=== PATIENT | female | born 1965 | race Caucasian/White ===

== ENCOUNTER → 2017-11-21 | Outpatient (CLI) | payer OTHER ==
[~2017-11-21] MED LIST: ALEVE220 MG PO; FLECAINIDE ACE150 MG PO; LISINOPRIL10 MG PO; NORCO 5-325 TA1 EACH PO; ORTHO TRI-CYCL1 EACH PO; PREVACID15 MG PO; SKELAXIN 800 M800 M1 PO; SYNTHROID125 MC1 PO; TRAMADOL 50 MG50 MG PO; XARELTO15 MG PO
--- NOTE | ~2017-11-21 | P ---
[facility] [place] [address] PROCEDURE REPORT Name: ÁNGEL TRENT Room #: [facility]#: [id number] Admission: 11/21/17 Attend Phys: Mason Mace MD Discharge: Date of : 69 Report #: [id number] THIS REPORT FOR: //name// CC: Sujit Mace BRIEF HISTORY: The patient is a 52-year-old woman, for her initial average risk screening colonoscopy. PREOPERATIVE DIAGNOSIS: Average risk screening colonoscopy. POSTOPERATIVE DIAGNOSES: 1. Normal average risk screening colonoscopy. 2. Moderately severe diverticulosis coli, primarily sigmoid colon. MEDICATIONS: Deep sedation with propofol per Anesthesia. SPECIMEN: None. ESTIMATED BLOOD LOSS: None. PROCEDURE: Colonoscopy to cecum and terminal ileum. FINDINGS: Prior to propofol sedation, procedure of colonoscopy discussed with the patient as well as potential risks and its complications. She indicates she understands and desires to proceed. DESCRIPTION OF PROCEDURE: With the patient in left lateral decubitus position, digital examination was completed which revealed no abnormalities. Subsequently, the Olympus video colonoscope was introduced in the rectum, advanced under direct vision to the cecum. Done with minimal difficulty. The cecum was identified by the ileocecal valve and the appendiceal orifice. I was able to visualize the distal segment of the terminal ileum which was inspected and noted to be unremarkable. At that point, the scope was slowly withdrawn and careful circumferential views obtained including retroflexing the scope in the ascending colon. Upon slow withdrawal of the scope, the prep was good. The mucosa was within normal limits, normal vascular pattern, normal light reflex. No mucosal abnormalities were seen. As we withdrew the scope, an occasional diverticulum was seen in the proximal colon. However, she had moderately severe diverticular disease of the sigmoid colon without endoscopic evidence of diverticulitis. The scope was withdrawn in the rectum and no additional abnormalities were seen. Upon retroflexion in the rectum, no abnormalities were seen. Scope was withdrawn. The patient tolerated the procedure well. CONDITION OF THE PATIENT UPON DISCHARGE: Following the procedure, the patient was drowsy, aroused, conversant and will be discharged home when fully [facility] [address] [place] [address] PROCEDURE REPORT Name: ÁNGEL TRENT Room #: [facility]#: [id number] Admission: 11/21/17 Attend Phys: Mason Mace MD Discharge: Date of : 69 Report #: [id number] ambulatory. INSTRUCTIONS TO THE PATIENT AND FAMILY AT THE TIME OF DISCHARGE: No neoplastic lesions seen on examination today. Suggest high fiber diet for the diverticular disease. She is considered average risk and suggest followup colon exam in 10 years. She will return to care of Dr. Sujit Al. Return to see me as needed. This is the patient's first colonoscopy, withdrawal time from cecum was 17 minutes 43 seconds. <ELECTRONICALLY SIGNED> By: Mason Mcae MD 11/21/17 1723 [id number] Mason Mace MD /nt
== END ==
LOC: GI 06:31
DX: Z12.11 Encounter for screening for malignant neoplasm of colon (principal); K57.30 Diverticulosis of large intestine without perforation or abscess without bleeding; I10 Essential (primary) hypertension; E66.9 Obesity, unspecified; I48.91 Unspecified atrial fibrillation; K21.9 Gastro-esophageal reflux disease without esophagitis; G47.30 Sleep apnea, unspecified; E03.9 Hypothyroidism, unspecified; Z88.8 Allergy status to other drugs, medicaments and biological substances; Z79.899 Other long term (current) drug therapy; Z90.49 Acquired absence of other specified parts of digestive tract; Z98.818 Other dental procedure status; Z68.44 Body mass index [BMI] 60.0-69.9, adult; Z79.01 Long term (current) use of anticoagulants
CPT/HCPCS: 62110; 62900